=== PATIENT | female | born 1990 | race African-American/Black ===

== ENCOUNTER 2018-11-06 22:38 | Emergency (ER) | payer OTHER ==
[~2018-11-06] VITALS: Ht 162.6 cm; Wt 59.0 kg
[2018-11-07] MEDS ORDERED: LORAZEPAM 1MG TABLET PO ONE (00:30)
[2018-11-07 01:44] VITALS: BP 121/76
== END 2018-11-07 01:49 | disposition home or self-care (01) ==
LOC: ER 22:52
DX: F41.0 Panic disorder [episodic paroxysmal anxiety] (principal); R00.0 Tachycardia, unspecified; R06.02 Shortness of breath
CPT/HCPCS: 93005; 99284